=== PATIENT | male | born 1980 | race Caucasian/White ===

== ENCOUNTER 2025-01-12 17:40 | Emergency (ER) | payer BC, SELFPAY ==
[2025-01-12 17:49] VITALS: BP 165/88; PULSE 70; RESP 20; TEMP 36.5; O2SAT 97
--- OUTSIDE RECORDS SUMMARY | 2025-01-12 18:37 | XMS_ITS | Clinical Summary ---
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 Gender Identity Not on file Sexual Orientation Not on file Plan of Treatment Health Maintenance Due Date Last Done Comments Colon Cancer Screening-Colonoscopy 1978 Depression Screening 1978 Hepatitis C Screening 1978 Regular Well Visit/Exam 18-64 1996 Covid-19 Vaccine (3 - 2023-2 5 season) 2024 2021, 08/28/2021 Influenza Vaccine (#1) 2024 DTaP/Tdap/Td Vaccine (2 - Td or Tdap) 03/24/2028 03/24/2018 Hepatitis B Screening Completed 11/11/2004 HPV Vaccines Aged Out No longer eligi ble based on patient's age to complete this topic Pneumococcal vaccine <65 Aged Out No longer eligible based on patient's age to complete this topic Insurance [place] [id number] [facility] Care Teams Training Technician Relationship Specialty Start Date End Date Gogo Rubin MD PCP - General Family Medicine 11/26/22
--- OUTSIDE RECORDS SUMMARY | 2025-01-12 18:37 | XMS_ITS | Referral Summary ---
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
--- OUTSIDE RECORDS SUMMARY | 2025-01-12 18:37 | XMS_ITS | Clinical Summary ---
Author Organization [facility] Address [address] [address] Phone Care Team Providers Care Banbury Mixer Operator Name Role Phone Wendy Barillas Primary Care Provider + Allergies No known active allergies Medications Cetirizine HCl (ZYRTEC ALLERGY PO) Take by mouth daily. Active hydrocortisone 2.5 % CreamIndications :Rash and other nonspecific skin eruption Apply 2 times daily. Application Site: Anal rash area 30 g 2 4 Active amLODIPine (NORVASC) 10 MG TabletIndication s:Hypertension, unspecified type Take 1 Tablet by mouth daily. 90 Tablet 3 4 Active irbesartan (AVAPRO) 150 MG TabletIndication s:Hypertension, unspecified type Take 1 Tablet by mouth daily. 90 Tablet 1 4 Active Active Problems Problem Noted Date Diagnosed Date Hyperlipidemia 11/11/2017 Hypertension, essential 11/11/2017 Seasonal allergic rhinitis Overview (08/31/2015): [place] Encounters Date Type Department Care Team Description 12/17/2024 MyChart RX Renewal [facility] - Family [facility] [address] [place] [address] Wendy Barillas PAC Medication Renewal Declined from Last 3 Months Immunizations Immunization Administration Dates Next Due Covid-19, Mrna, Lnp-s, Pf, 30 Mcg/0.3 Ml Dose (Rohini omalley) 2021,08/28/2021 Hepatitis A Vaccine 11/11/2004 Hepatitis B Vaccine 11/11/2004 TDAP Vaccine 03/24/2018 Tetanus Toxoid, Unspecified Formulation 11/11/19 05 Family History Medical History Relation Name Comments Diabetes Father Hypertension Mother Relation Name Status Comments Father Mother Social History Tobacco Use Types Packs/Day Years Used Date Smoking Tobacco: Never Smokeless Tobacco: Never Tobacco Cessation:Counseling Given: Not Answered Alcohol Use Standard Drinks/Week Comments Not Currently 2 (1 standard drink = 0.6 oz pur e alcohol) [facility] Utilities Answer Date Recorded In the past 12 months has e [employer], gas, oil, or water company threatened to shut off services in your home? Patient declined 11/25/2023 Social Connection and Isolat ion Panel [NHANES] Answer Date Recorded In a typical week, how many times do you talk on the phone with family, friends, or neighbors? More than three times a week 11/25/2023 How often do you get togethe r with friends or relatives? More than three times a week 11/25/2023 How often do you attend chur ch or sikh services? Patient declined 11/25/2023 Do you belong to any clubs o r organizations such as pentecostalism groups, unions, fraternal or athletic groups, or school groups? No 11/25/2023 How often do you attend meet ings of the clubs or organizations you belong to? Patient declined 11/25/2023 Are you , , di vorced, , never , or living with a partner? 11/25/2023 AUDIT-C Answer Date Recorded Q1: How often do you have a drink containing alc ohol? 2-4 times a month 11/25/2023 Q2: How many drinks containi ng alcohol do you have on a typical day when you are drinking? 1 or 2 11/25/2023 Q3: How often do you have si x or more drinks on one occasion? Never 11/25/2023 Overall Financial Resource Strain (CARDIA) Answe r Date Recorded How hard is it for you to pa y for the very basics like food, housing, medical care, and heating? Patient declined 11/25/2023 PHQ-2 Answer Date Recorded Total Score - Questions 1-9 0 08/11 [facility] - Occupational Stress Questionnaire Answer Date Recorded Do you feel stress - tense, restless, nervous, or anxious, or unable to sleep at night because your mind is troubled all the time - these days? Patient declined 11/25/2023 Exercise Vital Sign Answer Date Recorde d On average, how many days pe r week do you engage in moderate to strenuous exercise (like a brisk walk)? 4 days 06/13/2024 On average, how many minutes do you engage in exercise at this level? 60 min 06/13/2024 Hunger Vital Sign Answer Date Recorded Within the past 12 months, y ou worried that your food would run out before you got the money to buy more. Patient declined Within the past 12 months, t he food you bought just didn't last and you didn't have money to get more. Patient declined PRAPARE - Transportation Answer Date Re corded In the past 12 months, has l ack of transportation kept you from medical appointments or from getting medications? Patient declined 11/25/2023 In the past 12 months, has l ack of transportation kept you from meetings, work, or from getting things needed for daily living? Patient declined 11/25/2023 Housing Stability Vital Sign Answer Renzo e Recorded In the last 12 months, was t here a time when you were not able to pay the mortgage or rent on time? Patient declined 11/25/19 24 Number of Places Lived in the Last Year Not on f ile 11/25/2023 In the last 12 months, was t here a time when you did not have a steady place to sleep or slept in a fci (including now)? Patient declined 11/25/2023 Education Answer Date Recorded What is the highest level of school you have completed or the highest degree you have received? Associate degree: occupational, technical, or vocational program 08/28/2023 Sexually Active Control Partners Comments Yes Sex and Gender Information Value Date Recorded Sex Assigned at Not on file Legal Sex Male 11:19 PM CDT Gender Identity Not on file Sexual Orientation Not on file Last Filed Vital Signs Vital Sign Reading Time Taken Comments Blood Pressure 142/80 07/06/2024 10:25 AM CDT Pulse 64 07/06/2024 10:25 AM CDT Temperature 36.7 C (98.1 F) 06/15/2024 12:53 PM CDT Respiratory Rate 16 07/06/2024 10:25 AM CDT Oxygen Saturation 98% 07/06/2024 10:25 AM CDT Inhaled Oxygen Concentration - - Weight 107 kg (236 lb) 06/15/2024 12:53 PM CDT Height 177.8 cm (5' 10 ) 06/15/2024 12:53 PM CDT Body Mass Index 33.86 06/15/2024 12:53 PM CDT Plan of Treatment Health Maintenance Due Date Last Done Comments Influenza Immunization (#1) 2024 SARS-COV-2 Immunization ( season) 2024 2021, 08/28/2021 Td Immunization Every 10 Years (Adults With 1 Tdap) 03/24/2028 03/24/2018 Colonoscopy High Risk 12/01/2028 12/01/2021 , 03/07/2015, 03/04/2015 Colorectal Cancer Screening 12/01/2028 Colonoscopy 12/01/2031 12/01/2021, 03/07/2015, 03/04/2015 Respiratory Syncytial Virus (RSV) Immunization (Adult) (1 - 1-dose 75+ series) 2053 Hepatitis B Immunization Discontinued 11/11/2004 Hepatitis C Virus (HCV) Screening Discontinued Meningococcal Immunization (ACWY) Aged Out No longer eligible based on patient's age to complete this topic Pneumococcal Immunization Combined Aged Out No longer eligible based on patient's age to complete this topic Rotavirus Immunization Aged Out No lo nger eligible based on patient's age to complete this topic Procedures Procedure Name Priority Date/Time Associated Diagnosis Comments COLONOSCOPY Routine 03/07/2015 from Last 3 Months or Most Recently Relevant to Health Maintenance Results * COLONOSCOPY (03/07/2015) Narrative Vanessa Lester - 03/07/2015 HIMS CREATED IN ERROR Uriah Blue MD PROCEDURE/MINOR SURGICAL ORDERABLES Edited Result - Final from Last 3 Months or Most Recently Relevant to Health Maintenance Insurance [facility] Care Teams Banbury Mixer Operator Relationship Specialty Start Date End Date Wendy Barillas PAC [address] [facility] [place] [address] PCP - General Physician Gluer And Wedger 08/29/23
--- OUTSIDE RECORDS SUMMARY | 2025-01-12 18:37 | XMS_ITS | Encounter Summary ---
Author Organization [facility] Address [address] [place] [address] Phone Care Team Providers Care Medical Billing Assistant Name Role Phone Uriah Blue MD Primary Care Provider [phone] Wendy aBrillas Primary Care Provider + Reason for Visit * Reason Comments Medication Refill Encounter Details Date Type Department Care Team (Late st Contact Info) Description 12/19/2021 [facility] - Link [address] [place] [address] Uriah Blue MD [address] [place] [address] Medication Refill Social History Tobacco Use Types Packs/Day Years Used Date Smoking Tobacco: Never Smokeless Tobacco: Never Alcohol Use Standard Drinks/Week Comments Yes 2 (1 standard drink = 0.6 oz pur e alcohol) PHQ-2 Answer Date Recorded Total Score - Questions 1-9 0 08/11 Sex and Gender Information Value Date Recorded Sex Assigned at Not on file Legal Sex Male 11:19 PM CDT Gender Identity Not on file Sexual Orientation Not on file COVID-19 Exposure Response Date Recorded In the last month, have you been in contact with someone who was confirmed or suspected to have Coronavirus / COVID-19? 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 documented as of this encounter Plan of Treatment Not on file documented as of this encounter Visit Diagnoses Not on filedocumented in this encounter Additional Health Concerns Infection Onset Date Last Indicated Resolved Time Respiratory Rule-Out 01/27/2024 01/27/2024 024 12:11 PM CDT Influenza 01/27/2024 01/27/2024 02/03/2024 12:1 6 AM CDT Assessment Noted Time PHQ-9 Depression Total Score: 0 08/21/20 21 9:00 AM CDT documented as of this encounter Care Teams Medical Billing Assistant Relationship Specialty Start Date End Date Uriah Blue MD [address] [place] [address] PCP - General Internal Medicine 08/01/15 08/28/23 Wendy Barillas PAC [address] [place] [address] PCP - General Physician Gallery Host 08/29/23 documented as of this encounter
--- NOTE | 2025-01-12 18:41 | ED_ITS ---
HPI - URI/Sore Throat General Chief Complaint: Upper Respiratory Infection Stated Complaint: poss sinus infection Time Seen by Provider: 01/12/25 18:25 Source: patient, RN notes reviewed and old records reviewed Mode of arrival: ambulatory Limitations: no limitations History of Present Illness HPI Narrative: 44 year old male presents to express care with sinus pressure, pain and pain behind eyes since Saturday with no known fevers, chills or body aches. Patient reports that he has been taking Zyrtec, Ibuprofen and also Tylenol sinus medication without relief. Patient reports history of sinus infections in the past. MD elicited complaint: rhinorrhea, nasal congestion and other (sinus infection) Pertinent past history: sinusitis Onset (ago): day(s) (4 days) Consistency: progressively worsening Severity: moderate Description of mucous: clear and yellow Able to tolerate fluids by mouth: Yes Treatments prior to arrival: other (zyrtec) Related Data Home Medications ?Medication ?Instructions ?Recorded ?Confirmed ?Last Taken ?Type amlodipine 10 mg tablet mg 01/12/25 Unknown History irbesartan 150 mg tablet mg 01/12/25 Unknown History Allergies Allergy/AdvReac Type Severity Reaction Status Date / Time No Known Allergies Allergy Verified 01/12/25 17:55 Review of Systems Review of Systems: CONSTITUTIONAL: Denies malaise, chills, sweats, or fever. EYES: Denies visual changes, redness, or discharge. ENT: Reports rhinorrhea, congestion, sinus pain, no otalgia and no sore throat. CARDIOVASCULAR: Denies chest pain, palpitations, or edema. RESPIRATORY: Reports occasional dry cough.? Denies dyspnea. GASTROINTESTINAL: Denies abdominal pain, nausea, vomiting, diarrhea SKIN: Denies rash or itching. MUSCULOSKELETAL: Denies myalgia. NEUROLOGIC: reports some frontal headache. All systems reviewed & are unremarkable except as noted in HPI and below PMFSH Past Medical History Medical History (Updated 01/15/25 @ 12:49 by Madeleine Andrade NP) Sinusitis Hypertension Social History Social History (Updated 01/15/25 @ 12:47 by Madeleine Andrade NP) Smoking status: Never smoker Alcohol intake: current Alcohol use details: social Substance use: never Living arrangements: with family Additional occupation/education comments: [employer] Gender identity (if verbalized by the patient): Male Comments At time of signature, agree with nursing past medical, surgical, social and family history. There is no relevant family history pertinent to the presenting complaint Exam Narrative: GENERAL: Well-appearing, well-nourished, and in no acute distress. HEAD: Normocephalic EYES: PERRLA, conjunctivae clear ENT: Nares red clear, turbinates edematous and erythematous, clear to light yellow discharge. Mucous membranes moist. TM pearly pope with dull light reflex bilaterally; no tragal tenderness. Oropharynx erythematous without lesions. Tonsils not enlarged and without exudate, no drooling, no hoarseness, no trismus, uvula midline.post nasal drainage present NECK: Supple. No lymphadenopathy CHEST: Clear to auscultation, breath sounds equal. No wheezing, rhonchi, rales, or stridor. No respiratory distress, speaks in full sentences.occasional dry cough SAO2 97% on room air HEART: Regular rate and rhythm. No murmur heard. SKIN: Warm, dry, no rash. NEURO: Alert and oriented x3. PSYCH: Normal mood and affect Course Course Emergency Course: Patient is aware of diagnosis, understands and agrees to treatment plan.? Anticipatory guidance given.? Patient agrees to follow-up as directed and is aware of reasons to seek care at the emergency department. Portions of this record may have been created with voice recognition software Level of Care: Express Care Visit Vital Signs Vital signs: Vital Signs Temperature 36.5 C 01/12/25 17:49 Pulse Rate 70 01/12/25 17:49 Respiratory Rate 20 01/12/25 17:49 Blood Pressure 165/88 H 01/12/25 17:49 Pulse Oximetry 97 01/12/25 17:49 Oxygen Delivery Room Air 01/12/25 17:49 Temperature 36.5 C 01/12/25 17:49 Pulse Rate 70 01/12/25 17:49 Respiratory Rate 20 01/12/25 17:49 Blood Pressure 165/88 H 01/12/25 17:49 Pulse Oximetry 97 01/12/25 17:49 Oxygen Delivery Room Air 01/12/25 17:49 Reviewed MDM - URI/Sore Throat MDM Narrative Medical decision making narrative: Differential diagnosis considered: Chi virus, strep pharyngitis, allergic rhinitis, upper respiratory tract infection, sinusitis, rhinosinusitis, nasopharyngitis. viral pharyngitis, otitis media, otitis externa, pneumonia, bronchitis, viral cough syndrome, viral syndrome, and influenza.? Exam findings show no acute concerns or changes; patient is non-toxic appearing and is in no distress.? Patient is appropriate for outpatient treatment and follow-up. Differential Diagnosis Differential diagnosis: Likely upper respiratory infection, sinusitis, viral infection and other (nasal congestion and drainage, headache) Medical Records Attestation: I reviewed the patient's medical records. Lab Data Attestation: I reviewed the patient's lab results. Critical Care Time Critical Care Time Critical Care Time: No Discharge Plan Discharge Clinical Impression: Sinusitis Qualifiers: Sinusitis location: pansinusitis Chronicity: acute Recurrence: not specified as recurrent Qualified Code(s): J01.40 - Acute pansinusitis, unspecified Patient Disposition: Home, Self-Care Condition: Stable Instructions: Antibiotic Form Additional Instructions: Increase fluids especially juices and water [id number] cough and cold medicine of your choice for your symptoms Zyrtec Claritin or Heidi daily may include Coricidin brand decongestant Tylenol or ibuprofen for any fever pain Nasal saline gently blow your nose did use Flonase nasal spray heat to the face 20-30 minutes 4-6 times a day for pain Salt water gargles, throat lozenges or throat sprays as desired Antibiotic as directed--finished the medication recommend probiotic or eating Activa yogurt while on this medication If your symptoms persist, change or worsen significantly before you can contact your personal physician then please, without delay, go to the emergency department for further evaluation. Follow-up with PCP in 7-10 days or sooner if needed Follow up with PCP soon in regards to your blood pressure which is elevated above threshold for referral. Blood pressure above 120/80 may indicate pre- hypertension.165/88 Patient Language: S[place] Prescriptions: New amoxicillin-pot clavulanate 875-125 mg tablet 1 tablet PO Q12H Qty: 20 0RF Rx Instructions: take with food fluticasone propionate [Flonase Allergy Relief] 50 mcg/actuation spray,suspension 2 spray intranasal DAILY Qty: 16 0RF Rx Instructions: administer into each nostril No Action amlodipine 10 mg tablet irbesartan 150 mg tablet Follow-up/Referrals: Nargis,ALICIA Hugo [Primary Care Provider] - Time of Disposition: 18:46 Quality Buhler Coma Scale Eyes: Open Verbal: Oriented and Alert Motor: Follows Commands Rodolfo Coma Total Score: 15
== END 2025-01-12 18:51 | disposition home or self-care (01) ==
PROVIDERS: Emergency Provider Registered Nurse; PCP Physician Assistant
DX: J01.40 Acute pansinusitis, unspecified (principal); I10 Essential (primary) hypertension
CPT/HCPCS: 99203; G0463